=== PATIENT | male | born 1990 | race Caucasian/White ===

== ENCOUNTER 2021-03-09 20:46 | Emergency (ER) | payer OTHER ==
[2021-03-09] MEDS ORDERED: ZOFRAN4 MG PO (23:06)
[2021-03-09] MEDS ORDERED: ZITHROMAX250 MG PO (23:06)
[2021-03-09] MEDS ORDERED: MEDROL DOSEPAK 24 MG PO (23:06)
== END 2021-03-09 23:30 | disposition home or self-care (01) ==
LOC: ER1 20:46
DX: U07.1 COVID-19 (principal); I10 Essential (primary) hypertension; Z88.0 Allergy status to penicillin
CPT/HCPCS: 0240U; 71045; 87081; 87880; 99283